=== PATIENT | male | born 1975 | race Caucasian/White ===

== ENCOUNTER 2016-09-30 16:30 | Emergency (ER) | payer MEDICAID ==
[2016-09-30] MEDS ORDERED: AMOXICILLIN 250 MG CAPSULE PO STA (17:17)
[2016-09-30] MEDS ORDERED: DEXAMETHASONE 10 MG/ML VIAL PO STA (17:17)
[2016-09-30] MEDS ORDERED: CHERRY SYRUP 10 ML UDC PO ONE (17:21)
[2016-09-30] MEDS ORDERED: AMOXICILLIN 250 MG CAPSULE PO ONE (17:21)
[2016-09-30] MEDS ORDERED: DEXAMETHASONE 10 MG/ML VIAL ONE (17:21)
--- NOTE | 2016-09-30 17:21 | ED Physician Documentation ---
History of Present Illness - Stated complaint Stated Complaint: TOOTH PX - Chief complaint Chief Complaint: Heent - Additonal information Additional information: known dental decay upper R premolar hurting recently abruptly markedly swollen and more painful Review of Systems Constitutional: denies: Fever Throat: reports: Dental pain / toothache Immunocompromised: denies: Immunocompromised PD PAST MEDICAL HISTORY - Past Medical History Past Medical History: Yes Respiratory: Asthma - Past Surgical History Past Surgical History: Yes - Present Medications Home Medications: Ambulatory Orders Medication Instructions Recorded Confirmed Amoxicillin 500 mg PO Q8H #30 capsule 09/30/16 HYDROcod/ACETAM 5/325 [Dresher 5/325] 1 ea PO Q6H PRN #6 tablet 09/30/16 Ibuprofen 200 - 600 mg PO Q6HR PRN 09/30/16 09/30/16 - Allergies Allergies/Adverse Reactions: Allergies Allergy/AdvReac Type Severity Reaction Status Date / Time No Known Drug Allergies Allergy Verified 09/30/16 16:40 - Social History Does the pt smoke?: Yes Smoking Status: Current every day smoker Does the pt drink ETOH?: Yes Does the pt have substance abuse?: Yes Substance Use and Type: Marijuana - Immunizations Immunizations are current?: Yes - POLST Patient has POLST: No PD ED PE NORMAL - Vitals Vital signs reviewed: Yes - General General: Alert and oriented X 3 - HEENT HEENT: Other (swollen R cheek, dental decay upper right premolars, no abscess seen to drain, no trismus) - Cardiac Cardiac: RRR, No murmur - Respiratory Respiratory: No respiratory distress, Clear bilaterally Results - Vitals Vitals: Vital Signs - 24 hr 09/30/16 16:32 Temperature 36.6 C Heart Rate 90 Respiratory 18 Rate Blood Pressure 125/69 O2 Saturation 97 Oxygen O2 Source Room air Departure - Departure Disposition: Home, Self Care Clinical Impression: Dental abscess Condition: Good Instructions: ED Dental Abscess Facial Cellulitis Prescriptions: Amoxicillin 500 mg PO Q8H #30 capsule HYDROcod/ACETAM 5/325 [Dresher 5/325] 1 ea PO Q6H PRN #6 tablet PRN Reason: Severe Pain Comments: Call [facility] in [place] Sunday morning to schedule follow up early this week Take the antibiotics as prescribed No more steroids are needed - one time dose to decrease the swelling until the antibiotics start working I have prescribed 6 vicodin to help with the pain until the antibiotics start to work - after that recommend motrin and tylenol. If the pain is not severe, don't take the vicodin at all Return if worse
[2016-09-30 17:34] VITALS: BP 111/75
== END 2016-09-30 17:33 | disposition home or self-care (01) ==
LOC: ED 16:30
DX: K04.7 Periapical abscess without sinus (principal); J45.909 Unspecified asthma, uncomplicated; F17.200 Nicotine dependence, unspecified, uncomplicated
CPT/HCPCS: 99282; 99283; A9270